=== PATIENT | female | born 1975 | race Caucasian/White ===

== ENCOUNTER 2018-01-01 19:32 | Emergency (ER) | payer MEDICARE, MEDICAID ==
[~2018-01-01] VITALS: Ht 152.4 cm; Wt 97.7 kg
[~2018-01-01 19:32] MED LIST: ADCIRCA20 MG PO; ALBUTEROL0.09 MG/A1 IH; AMOXICILLIN 8751 TAB PO; BUMEX 1MG TA1 MG/TA1 PO; CEPHALEXIN500 M1 PO; COUMADIN 1010 MG/TAB PO; COUMADIN 3MG3 MG/TAB PO; COUMADIN5 MG PO; COUMADIN6 MG PO; FLEXERIL10 MG PO; FLEXERIL5 MG PO; FLOXIN OTIC DROP5 ML OT; GABAPENTIN300 M1 PO; IMPLANON68 MG ID; K-TAB20 PO; LASIX 40MG TABL40 MG PO; LEVAQUIN 750MG750 MG PO; LEXAPRO 10MG10 MG PO; MOTRIN 600600 MG/TAB PO; NEURONTIN300 MG/CAP PO; NORCO 325 MG-51 TAB PO; OPSUMIT PO; OXYCONTIN 10MG10 MG PO; PERCOCET 325 MG1 TA2 PO; PERCOCET 325 MG1 TAB PO; PRILOSEC 20MG20 MG PO; PROVENTIL0.09 MG/A1 IH; ROXICODONE 55 MG/TAB PO; TREPROSTINIL IV; ZOCOR 20MG20 MG PO; ZOCOR 40MG40 MG PO
[2018-01-01 19:34] VITALS: BP 131/66; TEMP 98.5
[2018-01-01] MEDS ORDERED: ROXICODONE 55 MG/TAB PO (19:51)
[2018-01-01] MEDS ORDERED: OPSUMIT PO (19:52)
[2018-01-01] MEDS ORDERED: ADCIRCA20 MG PO (19:53)
[2018-01-01] MEDS ORDERED: TREPROSTINIL (19:54)
[2018-01-01 20:13] VITALS: PULSE 76
== END 2018-01-01 20:14 | disposition home or self-care (01) ==
LOC: COL.ER 19:32
DX: H60.92 Unspecified otitis externa, left ear (principal); J45.909 Unspecified asthma, uncomplicated; I27.20 Pulmonary hypertension, unspecified; Z79.01 Long term (current) use of anticoagulants; Z87.891 Personal history of nicotine dependence

== ENCOUNTER → 2019-09-06 | Outpatient (CLI) | payer MEDICARE, MEDICAID ==
[~2019-09-06] MED LIST changes: +TREPROSTINIL
== END ==
LOC: COL.RAD 12:35
DX: L03.311 Cellulitis of abdominal wall (principal)

== ENCOUNTER 2022-05-15 16:22 | Emergency (ER) | payer MEDICARE, MEDICAID ==
[~2022-05-15] VITALS: Ht 149.9 cm; Wt 113.6 kg
[2022-05-15 16:25] VITALS: TEMP 98.3
[2022-05-15 19:05] VITALS: BP 138/82; PULSE 71
== END 2022-05-15 19:05 | disposition home or self-care (01) ==
LOC: COL.ER 16:22
DX: S09.90XA Unspecified injury of head, initial encounter (principal); S00.83XA Contusion of other part of head, initial encounter; I27.20 Pulmonary hypertension, unspecified; Z79.01 Long term (current) use of anticoagulants; W22.8XXA Striking against or struck by other objects, initial encounter